=== PATIENT | female | born 1965 ===

== ENCOUNTER 2017-07-21 22:56 | Emergency (ER) | payer SELFPAY ==
[2017-07-21] MEDS ORDERED: NITROGLYCERIN 0.4 MG TAB SL PRN (23:10)
[2017-07-21] MEDS ORDERED: SODIUM CHLORIDE 0.9% FLUSH 10 ML SOL IV PRN (23:10)
[2017-07-21 23:17] LABS: BASOPHILS % (AUTO) 1 % (0-3); EOSINOPHILS % (AUTO) 2 % (0-9); HEMATOCRIT 41 % (35-47); MEAN CORPUSCULAR HGB CONC 34.6 gm/dl (32.0-36.0); MEAN CORPUSCULAR VOLUME 92 fL (81-99); MONOCYTES % (AUTO) 9.8 % (0-12)
[2017-07-21 23:31] VITALS: TEMP 98.3
[2017-07-21 23:38] LABS: ALBUMIN 3.6 gm/dl (3.4-5.0); ALT 22 IU/L (14-63); CALCIUM 8.9 mg/dl (8.5-10.1); GLOM FILT RATE 66 mL/min (>60); POTASSIUM 3.4 mMol/L (3.5-5.1); SODIUM 137 mMol/L (136-145)
[2017-07-21] MEDS ORDERED: POTASSIUM CHLORIDE 10 MEQ TER PO ONE (23:59)
[2017-07-22] MEDS ORDERED: POTASSIUM CHLORIDE 10 MEQ TER ONE (00:01)
[2017-07-22] MEDS ORDERED: LORAZEPAM 0.5 MG TAB PO ONE (00:08)
[2017-07-22] MEDS ORDERED: LORAZEPAM 0.5 MG TAB ONE (00:11)
[2017-07-22] MEDS ORDERED: PANTOPRAZOLE SODIUM 40 MG ECT PO ONE ×2 (00:21→00:27)
[2017-07-22] MEDS ORDERED: ALUMINUM/MAGNESIUM 30 ML SUS PO ONE (00:21)
[2017-07-22] MEDS ORDERED: ALUMINUM/MAGNESIUM 30 ML SUS ONE (00:26)
[2017-07-22 01:56] VITALS: O2SAT 95
[2017-07-22 03:33] VITALS: BP 117/88; PULSE 81; RESP 17
== END 2017-07-22 03:48 | DRG 313 ==
LOC: ED 22:56
DX: R07.89 Other chest pain (principal); F41.0 Panic disorder [episodic paroxysmal anxiety]
CPT/HCPCS: 36415; 71010; 80053; 82550; 84484; 85025; 85610; 85730; 93005; 99285

== ENCOUNTER 2019-03-20 20:24 | Emergency (ER) | payer SELFPAY ==
[2019-03-20 20:39] VITALS: RESP 20
[2019-03-20] MEDS ORDERED: KETOROLAC TROMETHAMINE 30 MG/ML SOL IM ONE (20:44)
[2019-03-20] MEDS ORDERED: KETOROLAC TROMETHAMINE 30 MG/ML SOL ONE (20:45)
[2019-03-20] MEDS ORDERED: DIAZEPAM 5 MG TAB PO ONE (21:35)
[2019-03-20] MEDS ORDERED: DIAZEPAM 5 MG TAB ONE (21:58)
[2019-03-20 22:47] VITALS: BP 136/68; PULSE 79; TEMP 96.5; O2SAT 99
== END 2019-03-20 23:49 | disposition home or self-care (01) | DRG 556 ==
LOC: ED 20:24
DX: M25.562 Pain in left knee (principal); M54.9 Dorsalgia, unspecified; S39.012A Strain of muscle, fascia and tendon of lower back, initial encounter; W01.0XXA Fall on same level from slipping, tripping and stumbling without subsequent striking against object, initial encounter; S86.912A Strain of unspecified muscle(s) and tendon(s) at lower leg level, left leg, initial encounter
CPT/HCPCS: 72120; 73560; 99283; J1885; 96372; A9270-GY